=== PATIENT | female | born 1980 | race Caucasian/White ===

== ENCOUNTER 2016-05-18 14:59 | Emergency (ER) | payer OTHER ==
[~2016-05-18] VITALS: Ht 165.1 cm; Wt 90.9 kg
[~2016-05-18 14:59] MED LIST: CEPH-512 PO
[2016-05-18 15:09] VITALS: BP 135/86; RESP 18; O2SAT 97
--- NOTE | 2016-05-18 15:27 | ED.REPORT ---
HPI-Ear Pain/Problem/FB Date of Service May 18, 2016 ED Provider: Julia Hearn History of Present Illness: feels like a burn or blister is in her left ear. wears ear plugs, works a a [employer]. Has not done any treatment. finished antibiotics for URI 3 to 4 days ago augmentin. Cleans ears with a qtips. [facility] [place] is primary care. 10/19 has allergies Nursing Notes Stated Complaint: LEFT EAR FEELS LIKE IT HAS BLISTERS IN IT Chief Complaint: ENT & Mouth Nursing Notes Reviewed: Yes Allergies: Coded Allergies: MUSHROOM (Verified Allergy, Severe, Anaphylaxis, 05/18/16) ciprofloxacin (Verified Allergy, Severe, Anaphylaxis, 05/18/16) shellfish derived (Verified Allergy, Severe, Anaphylaxis, 05/18/16) latex (Verified Allergy, Intermediate, Rash,Itching,SOB, 05/18/16) ondansetron (Verified Allergy, Intermediate, Rash,Itching,SOB, 05/18/16) Scheduled Cephalexin (Keflex) 500 Mg Capsule 500 MG PO BID General Time Seen by MD: 15:27 Chief Complaint Ear problem left Hx Obtained From: Patient Onset Occurred: More than a week ago... (1 month) Symptom Duration: Since onset Location: : Ear canal Past Medical History Past Medical History Migraine Headaches Reports: Asthma Past Surgical History Suction D&C, failed IUD Reports: Cholecystectomy, Tonsillectomy Family History noncontributory Smoking History Current Every Day Smoker Social History Alcohol Use: Denies alcohol use Drug Use: Denies drug use, THC Occupation lives with brother, works as a [employer] 05/18/2016 Ambulatory Status Independent Review of Systems Basic Review of Systems Eyes: Vision NL, No discharge Hematologic: No bleeding, No bruising Psychiatric: Normal thought content Physical Exam Initial Vital Signs Vital Signs (First) Date Time Temp Pulse Resp B/P Pulse Ox O2 Delivery O2 Flow Rate FiO2 05/18/16 15:09 36.5 100 18 135/86 97 Room Air Initial VS: Reviewed, Vital signs normal Head / Eyes: Atraumatic, Normocephalic, PERRL Extremities: Vascular intact, Neuro intact, No swelling, No tenderness Psychiatric: Mood/affect normal, Behavior normal, Normal thought content General/Constitutional: Awake, Alert, No acute distress, Well appearing, Well developed, Well hydrated, Well nourished, Cooperative, Not toxic appearing left ear has pain with pinna movement. exam indicates canal is swollen moderately. Unable to visualize tympanic membrane. No discharge noted. Head / Eyes: Atraumatic, Normocephalic, PERRL, EOMI Respiratory / Chest: Atraumatic, Breath sounds NL, Breath sounds = bilat, No respiratory distress Cardiovascular: Heart rate NL, Regular rhythm, Heart sounds NL, No gallop Re-Eval/Medical Decision Med Decision/Clinical Course 36 year old female presents for evualation of left ear pain. Has been using ear plug. 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 No sign of exczema or mastoiditis Discharge & Departure Primary Impression: Otitis externa Laterality: left Chronicity: acute Disposition: Home Patient Instructions: Otitis Externa (ED) Additional Instructions: Nothing should go into your ear. If you need extra ear protection because of the decibel rating, use wax ear plugs and just put them right at the opening and then wear the ear muffs. Also do not use q-tips to clean your ears. The saying nothing smaller than your elbow in your ears. To clean your ears, wait till your ear is healed. Then once a month, use hydrogen peroxide. Let the ear sit with the medication for 15 minutes and then wash it out in the shower. Do not use q-tips to dry the ear. If it feels like there is water in there use 1 to 2 drops of rubbing alcohol, this will help evaporate the water. Use cortisporin otic ear drops 4 drops to the left ear 3 times a day for 7 days. Use doxycycline 100 mg in the am and pm for 7 days. Use ketorolac 10 mg up to 4 times a day for discomfort. Referrals: OTHER,PHYSICIAN (PCP) EDSupervising Provider for APC: Kishor Kim MD, Sue ARNP May 18, 2016 15:27
[2016-05-18] MEDS ORDERED: Neomycin-Polymyxin-HC 10 mL Otic Solution LEFT_EAR ONE (16:00)
== END 2016-05-18 16:29 | disposition home or self-care (01) ==
LOC: SED 14:59
DX: H60.502 Unspecified acute noninfective otitis externa, left ear (principal); J45.909 Unspecified asthma, uncomplicated; F17.200 Nicotine dependence, unspecified, uncomplicated; Z88.1 Allergy status to other antibiotic agents; Z91.013 Allergy to seafood; Z91.040 Latex allergy status; Z88.6 Allergy status to analgesic agent
CPT/HCPCS: 96372; 99283; J1885

== ENCOUNTER 2016-05-20 21:12 | Emergency (ER) | payer OTHER ==
[~2016-05-20] VITALS: Ht 165.1 cm; Wt 90.9 kg
[2016-05-20 21:18] VITALS: BP 132/86; PULSE 76; RESP 16; O2SAT 98
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
[2016-05-20] MEDS ORDERED: _HYDROcodone/APAP 5-325 mg Tablet PO PRN (23:55)
[2016-05-21 00:59] VITALS: BP 137/89; PULSE 70; RESP 16; O2SAT 96
[2016-05-21 01:51] VITALS: BP 137/89; PULSE 70; RESP 16; O2SAT 96
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
== END 2016-05-21 01:53 | disposition home or self-care (01) ==
LOC: SED 21:12
DX: S16.1XXA Strain of muscle, fascia and tendon at neck level, initial encounter (principal); V43.52XA Car driver injured in collision with other type car in traffic accident, initial encounter; Y93.89 Activity, other specified; Y92.410 Unspecified street and highway as the place of occurrence of the external cause; Y99.8 Other external cause status; F17.200 Nicotine dependence, unspecified, uncomplicated; Z88.1 Allergy status to other antibiotic agents; Z88.6 Allergy status to analgesic agent; Z91.040 Latex allergy status; Z91.013 Allergy to seafood
CPT/HCPCS: 72125; 73110; 96372; 99284; J1885

== ENCOUNTER 2016-05-23 22:32 | Emergency (ER) | payer OTHER ==
[2016-05-23 22:41] VITALS: BP 127/82; PULSE 89; RESP 20; O2SAT 97
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
[2016-05-23] MEDS ORDERED: Dexamethasone 20 mg/2 mL Oral Solution PO ONE (23:40)
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
== END 2016-05-24 01:06 | disposition home or self-care (01) ==
LOC: SED 22:32
DX: S63.502D Unspecified sprain of left wrist, subsequent encounter (principal); S63.501D Unspecified sprain of right wrist, subsequent encounter; S39.012D Strain of muscle, fascia and tendon of lower back, subsequent encounter; V49.40XD Driver injured in collision with unspecified motor vehicles in traffic accident, subsequent encounter; Y93.89 Activity, other specified; Y92.410 Unspecified street and highway as the place of occurrence of the external cause; Y99.8 Other external cause status; J45.909 Unspecified asthma, uncomplicated; F17.200 Nicotine dependence, unspecified, uncomplicated; Z88.1 Allergy status to other antibiotic agents; Z91.040 Latex allergy status; Z91.013 Allergy to seafood; Z88.8 Allergy status to other drugs, medicaments and biological substances; Z91.018 Allergy to other foods